=== PATIENT | male | born 1965 | race African-American/Black ===

== ENCOUNTER 2017-01-29 07:55 | Day surgery (SDC) | payer OTHER ==
[2017-01-29] MEDS ORDERED: HURRICAINE ONE 20% TOPICAL SPRAY MM (09:07)
--- NOTE | 2017-01-29 10:09 | Short Stay Summary ---
Short Stay Documentation Date of service: 01/29/17 - History H&P: obtained from office - Allergies and Medications Current Medications: Allergies No Known Allergies Allergy (Verified 01/29/17 08:23) Active Medications Fentanyl (Sublimaze) 100 mcg IV ONCE ONE Stop: 01/29/17 09:03 Midazolam HCl (Versed) 5 mg IV ONCE ONE Stop: 01/29/17 09:03 - Physical exam General appearance: no acute distress Integumentary: no rash HEENT: Atraumatic Lungs: Clear to auscultation Breasts: deferred Heart: Regular rate Gastrointestinal: normal Male Genitourinary: deferred Female Genitourinary: deferred Rectal Exam: deferred Extremities: no ischemia Neurological: Normal gait - Brief post op/procedure progress note Date of procedure: 01/29/17 Pre-op diagnosis: Abnormal echocardiogram Post-op diagnosis: same Procedure: LYNETTE Anesthesia: MAC Findings: See report Surgeon: ELENA LUCIANO Estimated blood loss: none Pathology: none Condition: stable - Hospital course Hospital course: Uneventful - Disposition Condition at discharge: Good Disposition: DC-01 TO HOME OR SELFCARE Short Stay Discharge Plan Activity: advance as tolerated Weight Bearing Status: Weight Bear as Tolerated Diet: low fat, low cholesterol Follow up with: DAHLIA LORENZ MD [Primary Care Provider] - 7 Days
--- NOTE | 2017-01-29 10:16 | Operative Report ---
Operative Report Operative Report: Procedure: LYNETTE Indication: Abnormal echocardiogram, echogenic density in right atrium Description: After obtaining written consent, patient was moderately sedated with 4 mg IV versed and 100 mcg IV fentanyl. LYNETTE probe was advanced without difficulty and retrieved at the end of the procedure without complications. Findings: Normal LV size and systolic function, LVEF 60% No evidence of LATANYA thrombus Normal RV size and function Normal RA size. The echogenic density noted on TTE most likely corresponds to a prominent cristae terminalis. No echocardiographic evidence of abnormal mass or thrombus in the right atrium Normal MV structure and function Normal AV structure, mild aortic regurgitation Normal tricuspid valve Normal pulmonic valve No pericardial effusion Normal aortic root and thoracic aorta Intact interatrial septum with a negative bubble study Impression: The echogenic density in the right atrium most likely correspnds to a prominent cristae terminalis (benign structure) Normal LV size and function Mild aortic regurgitation Recommendations: Follow-up echocardiogram in 1 year to document stability
[2017-01-29] MEDS ORDERED: HURRICAINE ONE 20% TOPICAL SPRAY MM NR (12:00)
[2017-01-29] MEDS ORDERED: SUBLIMAZE IV ONE (12:00)
[2017-01-29] MEDS ORDERED: VERSED IV ONE (12:00)
[2017-01-29 12:43] VITALS: BP 106/74
== END 2017-01-29 12:25 | disposition home or self-care (01) ==
LOC: OPU 07:55
PROVIDERS: ATTEND Internal Medicine
DX: I35.1 Nonrheumatic aortic (valve) insufficiency (principal); Z98.890 Other specified postprocedural states; Z72.89 Other problems related to lifestyle; Z82.49 Family history of ischemic heart disease and other diseases of the circulatory system
CPT/HCPCS: 93312; J2250; J3010; 93320; 93325

== ENCOUNTER 2017-02-27 06:51 | Day surgery (SDC) | payer OTHER ==
[2017-02-27] MEDS ORDERED: WATER FOR IRRIG STERILE IR ONE (07:09)
[2017-02-27] MEDS ORDERED: WATER FOR IRRIG STERILE ONE (07:10)
[2017-02-27] MEDS ORDERED: DIPRIVAN 10 MG/ML IV ONE ×2 (07:12)
--- NOTE | 2017-02-27 07:26 | Anesthesia Day of Surgery ---
Anesthesia Day of Surgery - Day of Surgery Patient Examined: Yes Patient H&P Reviewed: Yes Patient is NPO: Yes
--- NOTE | 2017-02-27 07:28 | Anesthesia Consultation ---
Anesthesia Consult and Med Hx Date of service: 02/27/17 - Airway Anesthetic Teeth Evaluation: Good ROM Head & Neck: Adequate Mental/Hyoid Distance: Adequate Mallampati Class: Class II Intubation Access Assessment: Probably Good - Pulmonary Exam CTA: Yes - Cardiac Exam Cardiac Exam: RRR - Pre-Operative Health Status ASA Pre-Surgery Classification: ASA1 Proposed Anesthetic Plan: MAC - Pulmonary Hx Smoking: No - Cardiovascular System Hx Hypertension: No Hx Heart Attack/AMI: No - Central Nervous System Hx Seizures: No CVA: No Hx Psychiatric Problems: No - Endocrine Hx Renal Disease: No Hx Liver Disease: No Hx Non-Insulin Dependent Diabetes: No - Other Systems Hx Cancer: No Hx Obesity: No - Additional Comments Anesthesia Medical History Comments: NAC
[2017-02-27] MEDS ORDERED: NACL 0.9% 1000 ML 1,000 ML IV SCH (08:00)
--- NOTE | 2017-02-27 08:18 | Short Stay Summary ---
Short Stay Documentation - Allergies and Medications Current Medications: Allergies No Known Allergies Allergy (Verified 01/29/17 08:23) Home Medications Medication Instructions Recorded Confirmed Last Taken Type No Known Home Medications [No 02/26/17 02/26/17 Unknown History Reported Home Medications] Active Medications Sodium Chloride (Nacl 0.9% 1000 Ml) 1,000 mls @ 50 mls/hr IV DIRECT LA Last Admin: 02/27/17 07:33 Dose: 50 mls/hr - Brief post op/procedure progress note Date of procedure: 02/27/17 Pre-op diagnosis: Colon cancer screening Post-op diagnosis: same Procedure: Colonoscopy Anesthesia: MAC Findings: as above Surgeon: YOLANDA THOMAS Estimated blood loss: none Pathology: none Condition: stable - Disposition Condition at discharge: Stable Disposition: DC-01 TO HOME OR SELFCARE Short Stay Discharge Plan Activity: no restrictions Weight Bearing Status: Full Weight Bearing Diet: regular Follow up with: DAHLIA LORENZ MD [Primary Care Provider] - 7 Days
[2017-02-27 08:32] VITALS: BP 129/90
--- NOTE | 2017-02-27 09:58 | Post Anesthesia Evaluation ---
- Post Anesthesia Evaluation Patient Participated: Yes Airway Patent: Yes Stable Respiratory Function: Yes Nausea/Vomiting: No Temp > 96.8F: Yes Pain Manageable: Yes Adequeate Hydration: Yes Anesthesia Complications: No Block Receding Appropriately: Not Applicable Patient on Ventilator: No
== END 2017-02-27 06:52 | disposition home or self-care (01) ==
LOC: GIO 06:51
PROVIDERS: ATTEND Internal Medicine Gastroenterology
DX: Z12.11 Encounter for screening for malignant neoplasm of colon (principal); K64.0 First degree hemorrhoids; Z83.3 Family history of diabetes mellitus
CPT/HCPCS: 45378; J2704; J7030